=== PATIENT | male | born 1945 | race Caucasian/White ===

== ENCOUNTER → 2016-09-27 | Outpatient (CLI) | payer MEDICARE ==
--- NOTE | 2016-09-27 09:46 | XR ---
EXAMINATION TYPE: XR KUB DATE OF EXAM: 09/27/2016 COMPARISON: 08/29/2014 HISTORY: Pain TECHNIQUE: Single supine KUB image of the abdomen is obtained FINDINGS: Small bowel demonstrates no evidence for dilatation or air fluid levels. Gas and fecal material is seen in non-distended colon. No convincing evidence for pneumoperitoneum. Previously noted renal calculi are not reproduced with certainty at this time. Suspect small 3 mm ca lculi lower pole left kidney. The lung bases are clear. The osseous structures are intact. IMPRESSION: 1. Overall nonobstructive bowel gas pattern. 2. Improved and nephrolithiasis.
== END | disposition home or self-care (01) ==
LOC: RADXRMAIN 09:22
PROVIDERS: ATTEND Urology
DX: N20.0 Calculus of kidney (principal)
CPT/HCPCS: 74000

== ENCOUNTER → 2017-10-04 | Outpatient (CLI) | payer MEDICARE ==
--- NOTE | 2017-10-04 10:07 | XR ---
EXAMINATION TYPE: XR KUB DATE OF EXAM: 10/04/2017 COMPARISON: 09/27/2016 INDICATION: Renal stones TECHNIQUE: Single view abdomen supine view FINDINGS: There is a normal bowel gas pattern. Psoas margins are normal. No organomegaly is present. Sutures within the left upper quadrant is stable. IMPRESSION: 1. Unremarkable Abdomen
== END | disposition home or self-care (01) ==
LOC: RADXRMAIN 09:22
PROVIDERS: ATTEND Internal Medicine Gastroenterology
DX: N20.0 Calculus of kidney (principal)
CPT/HCPCS: 74018

== ENCOUNTER 2018-03-15 07:03 | Day surgery (SDC) | payer MEDICARE ==
[2018-03-14 08:40] VITALS: BMI 39.5
[~2018-03-15 07:03] MED LIST: DEXAMETHASONE SOD PHOSPHATE 10 MG/ML 1 ML VIAL IV ONE; HYDROmorphone 0.5 MG/0.5 ML SYRINGE IVP PRN; LACTATED RINGERS 1,000 ML IV SCH; LIDOCAINE 1% 20 ML VIAL (10MG/ML) FOR IV START INTRADERMA PRN; ONDANSETRON 4 MG/2 ML VIAL IVP ONE; SCOPOLAMINE 1.5MG/72HR PATCH TRANSDERM ONE
[2018-03-15 07:34] VITALS: TEMP 96.7
[2018-03-15 07:47] LABS: Glucose,Whole Blood 223 mg/dL (75-99)
[2018-03-15] MEDS ORDERED: PROPOFOL 10 MG/ML 20 ML VIAL IV ONE (08:04)
[2018-03-15 08:26] VITALS: RESP 18
--- NOTE | 2018-03-15 08:31 | P.PCN ---
Date of Procedure: 03/15/18 Procedure(s) Performed: Procedure: Total colonoscopy. Preoperative diagnosis: Screening for neoplasia, patient has history of polyps. Postoperative diagnosis: Sigmoid diverticulosis with no evidence of acute diverticulitis, strictures, polyps or cancer. Preparation: HalfLytely prep. Sedation: Was provided by anesthesia. Brief clinical history: The patient is a 72-year-old male who is scheduled for this evaluation for screening for neoplasia age being his risk factor. He also has history of polyps and his last exam was around 7 years ago. The patient has no abdominal complaints, bleeding or anemia. Procedure: With the patient on his left lateral decubitus position and after informed consent and adequate sedation, the perianal area was inspected and it did not show any fissures or fistulas. There were no masses felt on digital rectal examination. The Olympus CFH 190L video colonoscope was then inserted in the rectum in the usual fashion and advanced to the cecum. There were multiple diverticular orifices seen scattered in the sigmoid but I saw no evidence of acute diverticulitis or strictures. No polyps or tumors were seen or any other pathology. I retroflexed the endoscope in the rectum before the endoscope was withdrawn. The patient tolerated the procedure well. Plan: The patient was reassured. Discussed dietary measures. He will follow up with you as planned and I recommended repeat exam in 5 years.
[2018-03-15 08:34] LABS: Glucose,Whole Blood 185 mg/dL (75-99)
[2018-03-15 08:43] VITALS: BP 129/78; PULSE 110
== END 2018-03-15 09:26 | disposition home or self-care (01) ==
LOC: ORWHC2ENDO 07:03
DX: Z12.11 Encounter for screening for malignant neoplasm of colon (principal); K57.30 Diverticulosis of large intestine without perforation or abscess without bleeding; E11.9 Type 2 diabetes mellitus without complications; I25.10 Atherosclerotic heart disease of native coronary artery without angina pectoris; I10 Essential (primary) hypertension; E78.5 Hyperlipidemia, unspecified; Z95.5 Presence of coronary angioplasty implant and graft; Z86.718 Personal history of other venous thrombosis and embolism; Z86.010 Personal history of colon polyps; Z87.891 Personal history of nicotine dependence; Z79.82 Long term (current) use of aspirin; Z79.899 Other long term (current) drug therapy; Z79.84 Long term (current) use of oral hypoglycemic drugs
CPT/HCPCS: J2704; G0105

== ENCOUNTER → 2018-06-27 | Outpatient (CLI) | payer MEDICARE ==
--- NOTE | 2018-06-27 08:24 | XR ---
EXAMINATION TYPE: XR chest 2V DATE OF EXAM: 06/27/2018 COMPARISON: Prior chest x-ray 08/20/2014, CT chest 05/08/2015 HISTORY: Coronary artery disease, physical exam TECHNIQUE: Frontal and lateral views of the chest are obtained. FINDINGS: There is no focal air space opacity, pleural effusion, or pneumothorax seen. The cardiac silhouette size is within normal limits. The osseous structures are intact. Metallic coils seen at the posterior left chest inferiorly. IMPRESSION: No acute cardiopulmonary process. Postprocedural changes.
[2018-06-27 08:29] LABS: Anisocytosis Slight; HCT 43.6 % (39.0-53.0); HGB 14.4 gm/dL (13.0-17.5); MCV 90.7 fL (80.0-100.0); Platelet Count 227 k/uL (150-450); RBC 4.81 m/uL (4.30-5.90); RDW 16.2 % (11.5-15.5); WBC 7.7 k/uL (3.8-10.6)
[2018-06-27 17:11] LABS: Hemoglobin A1C 6.9 % (4.0-6.0)
[2018-06-27 17:41] LABS: Anion Gap 11.6 mmol/L (4.00-12.00); Calcium 10.2 mg/dL (8.7-10.3); Carbon Dioxide 25.4 mmol/L (21.6-31.8); Potassium 4.5 mmol/L (3.5-5.5)
== END ==
LOC: LABWHC1 07:24
PROVIDERS: ATTEND Internal Medicine Interventional Cardiology
DX: I25.10 Atherosclerotic heart disease of native coronary artery without angina pectoris (principal); I10 Essential (primary) hypertension
CPT/HCPCS: 36415; 71046; 80048; 83036; 85027

== ENCOUNTER → 2018-07-17 | Day surgery (SDC) | payer MEDICARE ==
[2018-07-12 13:38] VITALS: BMI 39.5
[~2018-07-17] MED LIST changes: +ALPRAZolam 0.25 MG TAB PO PRN; +ALPRAZolam 0.5 MG TAB PO PRN; +ASPIRIN 325 MG TAB PO STA; +ATORVASTATIN 80 MG TAB PO STA; +BIVALIRUDIN 250 MG in SODIUM CHLORIDE 0.9% 50 ML IV ONE; +BIVALIRUDIN BOLUS 250 MG/50 ML IV ONE; -DEXAMETHASONE SOD PHOSPHATE 10 MG/ML 1 ML VIAL IV ONE; +HEPARIN SODIUM 1,000 UN/ML (10ML VL) ONE; -HYDROmorphone 0.5 MG/0.5 ML SYRINGE IVP PRN; +IOPAMIDOL-370 100ML BTL INJ ONE; -LACTATED RINGERS 1,000 ML IV SCH; -LIDOCAINE 1% 20 ML VIAL (10MG/ML) FOR IV START INTRADERMA PRN; +LIDOCAINE 1% INJ 10MG/ML (20 ML MDV) ONE; +LIDOCAINE 1% INJ 10MG/ML (20 ML MDV) SQ ONE; +MIDAZOLAM (PF) 2 MG/2 ML VIAL IV ONE; +NITROGLYCERIN SL TABS 0.4 MG TAB SUBLINGUAL PRN; -ONDANSETRON 4 MG/2 ML VIAL IVP ONE; -SCOPOLAMINE 1.5MG/72HR PATCH TRANSDERM ONE; +SODIUM CHLORIDE 0.9% 1,000 ML IV SCH; +SODIUM CHLORIDE 0.9% 1,000 ML in EMPTY BAG 1 BAG IV ONE; +VERAPAMIL 2.5 MG/ML 2 ML AMP ONE; +VERAPAMIL SYRINGE (5 MG/10 ML) INTRAARTER ONE
[2018-07-17 07:04] LABS: Glucose,Whole Blood 196 mg/dL (75-99)
[2018-07-17 07:13] VITALS: TEMP 97.9
[2018-07-17 08:55] VITALS: RESP 18
[2018-07-17 15:27] VITALS: BP 131/77; PULSE 111
--- NOTE | 2018-07-18 07:56 | CC ---
CARDIAC CATHETERIZATION REPORT DATE OF SERVICE: 07/17/2018. PROCEDURE: 1. Left heart catheterization and coronary angiography. 2. PTCA of mid/distal totally occluded RCA. A FINISHER MAP AND CHART PCI. Unsuccessful. Moderate conscious sedation time was 46 minutes. Patient was administered Versed. His oxygen saturation, hemodynamics and EKG were monitored closely. CLINICAL INFORMATION: Mr. Deangelo San is a 72-year-old gentleman with a known history of CAD. Previous PCI of distal RCA with initially a bare metal stent in 1996 and a drug-eluting Taxus stent in 2003. Because of an abnormal stress test with hypokinesia in the inferior wall, ejection fraction in the 50% range with reversible defect as well as a fixed component, he was advised cardiac catheterization. The patient has a type 2 diabetes, hypertension, hyperlipidemia, and also had CKD. His creatinine, however, was in the normal range prior to procedure. He was orally hydrated and brought in for the procedure electively. PROCEDURE NOTE: Under local anesthesia and strict aseptic precautions, a 6-Bangladeshi introducer was placed in the right radial artery. Using an Ultimate 1 catheter I performed selective coronary angiography of both coronary arteries and using a pigtail catheter I checked LV pressures. LV gram was not performed. I noted that the distal RCA had a subtotal occlusion, almost like a chronic total occlusion. I advised intervention that was performed in the same setting. CARDIAC CATHETERIZATION FINDINGS: The left ventricular end-diastolic pressure was about 12 mmHg without any gradient across the aortic valve. CORONARY ANGIOGRAPHY FINDINGS: RIGHT CORONARY ARTERY: This is a large dominant vessel that was stented in the distal portion in 2003. Proximally, the vessel of fair caliber. In the midportion, there is a plaque of 40% after which the vessel is very tortuous and then there is a subtotal chronic occlusion with bridging collaterals with limited distal antegrade flow. The RCA therefore has a chronic total occlusion in the distal portion without significant antegrade flow. There are small acute marginal branches proximally which are free of significant disease. LEFT MAIN CORONARY ARTERY: This is a short patent vessel that immediately bifurcates into LAD and circumflex. No significant disease in the left main. LEFT ANTERIOR DESCENDING CORONARY ARTERY: Fair caliber vessel in the proximal 1/3 after the small septal branches where there is smooth with 40% narrowing after which the caliber improves gives off for the septal and diagonal branches runs all the way to the apex supplying a sizable amount of myocardium. The proximal LAD therefore has a 40% to 45% smooth narrowing. LEFT POSTERIOR CIRCUMFLEX CORONARY ARTERY: Technically a nondominant vessel, fair caliber in distribution has 30% to 35% narrowing. Minor irregularities. No significant disease. It gives off a single obtuse marginal that runs laterally. FINAL IMPRESSION: This patient has a chronic total occlusion of distal RCA which is filled by collaterals from the left system. There is a fair network of collaterals coming from the left system opacifying the branches of distal RCA. Left main is short, free of significant disease. Proximal LAD has a 40% to 45% smooth narrowing. No other areas of disease are noted in the LAD. Circumflex is nondominant, free of significant disease. Filling pressures are normal without any gradient across the aortic valve. RECOMMENDATION: I recommended PCI and attempted it in the same setting. PCI PROCEDURE NOTE: Initially I used a ART 3.5 guide catheter to cannulate the right coronary artery and a run-through wire was used to advance. I could not cross the total occlusion after multiple attempts. I tried to advance a 2.0, 8 mm balloon, but because of extreme tortuosity and inadequate guide support, I could not advance the balloon. I switched over to a 4.0 ART catheter. With this I had a better guide support. I used a Whisper wire combination but I really could not cross the total occlusion. Multiple attempts were made. It appeared that this was an easy occlusion across on visually, but there was very poor guide support and I could not advance the balloon to support it because of extreme tortuosity. The patient's contrast threshold was almost reached and I recommended that we not persist with the procedure. There were no complications. The patient received Angiomax bolus and infusion as per protocol. The patient tolerated procedure well. There were no complications. This was an unsuccessful PTCA because I could not cross the chronic total occlusion in the mid/distal RCA. The findings and results were discussed with the patient and his in great detail. MMODL / IJN: [id number] /
== END | disposition home or self-care (01) ==
LOC: CATHCVL 06:20
PROVIDERS: ATTEND Internal Medicine Interventional Cardiology
DX: I25.10 Atherosclerotic heart disease of native coronary artery without angina pectoris (principal); I25.82 Chronic total occlusion of coronary artery; I12.9 Hypertensive chronic kidney disease with stage 1 through stage 4 chronic kidney disease, or unspecified chronic kidney disease; N18.9 Chronic kidney disease, unspecified; E11.22 Type 2 diabetes mellitus with diabetic chronic kidney disease; E78.5 Hyperlipidemia, unspecified; Z86.718 Personal history of other venous thrombosis and embolism; Z86.711 Personal history of pulmonary embolism
CPT/HCPCS: 93458; 92920; C1769 ×3; C1887 ×2; C1725; C1894; J2001; J0583; J1644; Q9967; J2250

== ENCOUNTER → 2018-07-20 | Outpatient (CLI) | payer MEDICARE ==
[2018-07-20 11:39] LABS: HCT 41.5 % (39.0-53.0); HGB 13.6 gm/dL (13.0-17.5); MCH 29.9 pg (25.0-35.0); MCHC 32.8 g/dL (31.0-37.0); Mean Platelet Volume 6.6; Platelet Count 251 k/uL (150-450); RBC 4.56 m/uL (4.30-5.90); RDW 15.1 % (11.5-15.5)
[2018-07-20 16:57] LABS: African American GFR (CKD) 77.3 (60.0-200.0); Anion Gap 10.9 mmol/L (4.00-12.00); Carbon Dioxide 23.1 mmol/L (21.6-31.8); Potassium 4.6 mmol/L (3.5-5.5)
== END | disposition home or self-care (01) ==
LOC: LABWHC1 11:09
PROVIDERS: ATTEND Internal Medicine Interventional Cardiology
DX: I25.10 Atherosclerotic heart disease of native coronary artery without angina pectoris (principal)
CPT/HCPCS: 36415; 80048; 85027

== ENCOUNTER → 2018-10-22 | Outpatient (CLI) | payer MEDICARE ==
--- NOTE | 2018-10-22 09:47 | XR ---
EXAMINATION TYPE: XR KUB DATE OF EXAM: 10/22/2018 CLINICAL DATA: 72-year-old male with flank pain, renal calculus, PHH COMPARISON: 10/04/2017 FINDINGS: Nonobstructive bowel gas pattern. Embolization coils project at the left upper to mid abdomen. Mild s tool burden. 6 mm and 4 mm calculi left mid abdomen. Phleboliths in the right side of the pelvis. Mild degenerativ e change at the hips. Degenerative changes lumbar spine. IMPRESSION: 6 mm and 4 mm left renal calculi.
== END | disposition home or self-care (01) ==
LOC: RADXRMAIN 08:31
DX: N20.0 Calculus of kidney (principal)
CPT/HCPCS: 74018